=== PATIENT | female | born 1970 | race Caucasian/White ===

== ENCOUNTER 2017-09-13 02:39 | Emergency (ER) | payer OTHER ==
[~2017-09-13] VITALS: Ht 149.9 cm; Wt 84.4 kg
[~2017-09-13 02:39] MED LIST: ADDERALL 30 MG30 MG PO; ADVAIR 500-501 EACH INH; BACTRIM DS TAB1 EACH PO; CENTANY30 GM TP; KEFLEX500 MG PO; LOPRESSOR25 PO; NORCO 5-325 TA1 EACH PO; PAXIL CR37.5 MG PO; RESTORIL30 MG PO; XANAX 0.5 MG0.5 MG PO; ZOFRAN ODT4 MG PO
[2017-09-13] MEDS ORDERED: SINGULAIR 10 MG10 M1 (02:49)
[2017-09-13] MEDS ORDERED: SPIRIVA (02:50)
[2017-09-13 03:42] VITALS: BP 150/96
== END 2017-09-13 03:44 | disposition home or self-care (01) ==
LOC: M.ERS 02:39
DX: H53.10 Unspecified subjective visual disturbances (principal); F32.9 Major depressive disorder, single episode, unspecified; F41.9 Anxiety disorder, unspecified; F90.9 Attention-deficit hyperactivity disorder, unspecified type; I10 Essential (primary) hypertension; J45.909 Unspecified asthma, uncomplicated; G51.0 Bell's palsy; F17.200 Nicotine dependence, unspecified, uncomplicated; Z91.040 Latex allergy status

== ENCOUNTER 2017-11-20 18:51 | Emergency (ER) | payer OTHER ==
[~2017-11-20] VITALS: Ht 149.9 cm; Wt 81.7 kg
[~2017-11-20 18:51] MED LIST changes: +SINGULAIR 10 MG10 M1; +SPIRIVA
[2017-11-20] MEDS ORDERED: VALACYCLOVIR1000 MG PO (19:14)
[2017-11-20] MEDS ORDERED: HYDROCODONE-AP1 EAC6 PO (19:15)
[2017-11-20 19:32] VITALS: BP 148/80
== END 2017-11-20 19:33 | disposition home or self-care (01) ==
LOC: M.ERS 18:51
DX: G51.0 Bell's palsy (principal); I10 Essential (primary) hypertension; F90.9 Attention-deficit hyperactivity disorder, unspecified type; F32.9 Major depressive disorder, single episode, unspecified; J45.909 Unspecified asthma, uncomplicated; F17.210 Nicotine dependence, cigarettes, uncomplicated; Z91.040 Latex allergy status

== ENCOUNTER → 2018-01-09 | Outpatient (CLI) | payer OTHER ==
[~2018-01-09] MED LIST changes: +HYDROCODONE-AP1 EAC6 PO; +VALACYCLOVIR1000 MG PO
[2018-01-11 09:09] LABS: ANA INTERPRETATION Negative (Negative)
== END ==
LOC: M.LAB 12:17
DX: M25.50 Pain in unspecified joint (principal); I10 Essential (primary) hypertension; J45.909 Unspecified asthma, uncomplicated; Z87.891 Personal history of nicotine dependence

== ENCOUNTER → 2018-01-12 | Outpatient (CLI) | payer OTHER | LOC: M.MRI 13:18 | DX: J32.4 Chronic pansinusitis (principal); G51.0 Bell's palsy; I10 Essential (primary) hypertension; J45.909 Unspecified asthma, uncomplicated ==

== ENCOUNTER → 2019-01-29 | Outpatient (CLI) | payer OTHER | LOC: M.MRI 17:07 | DX: M51.16 Intervertebral disc disorders with radiculopathy, lumbar region (principal); M48.061 Spinal stenosis, lumbar region without neurogenic claudication ==

== ENCOUNTER → 2019-04-22 | Outpatient (CLI) | payer OTHER ==
[~2019-04-22] MED LIST changes: +NORCO 10-325 T1 EACH PO; +PIROXICAM20 MG PO; +PROAIR HFA8.5 GM INH; +SKELAXIN 800 M800 M1 PO; +SYMBICORT160 MCG/4. INH; +WELLBUTRIN SR100 MG PO
== END ==
LOC: M.PC 01:27
DX: M48.061 Spinal stenosis, lumbar region without neurogenic claudication (principal); M47.816 Spondylosis without myelopathy or radiculopathy, lumbar region; I10 Essential (primary) hypertension; G47.00 Insomnia, unspecified; J45.909 Unspecified asthma, uncomplicated; F32.9 Major depressive disorder, single episode, unspecified; F41.9 Anxiety disorder, unspecified; Z91.040 Latex allergy status

== ENCOUNTER → 2019-04-24 | Outpatient (CLI) | payer OTHER | END | disposition home or self-care (01) | LOC: M.PC 04:04 | DX: M54.5 Low back pain (principal); M47.816 Spondylosis without myelopathy or radiculopathy, lumbar region; M48.061 Spinal stenosis, lumbar region without neurogenic claudication; M51.36 Other intervertebral disc degeneration, lumbar region; I10 Essential (primary) hypertension; F32.9 Major depressive disorder, single episode, unspecified; J45.909 Unspecified asthma, uncomplicated; F41.9 Anxiety disorder, unspecified; G47.00 Insomnia, unspecified; Z98.890 Other specified postprocedural states; Z79.899 Other long term (current) drug therapy; Z91.040 Latex allergy status ==

== ENCOUNTER → 2019-05-27 | Outpatient (CLI) | payer OTHER | LOC: M.PC 01:15 | DX: M47.816 Spondylosis without myelopathy or radiculopathy, lumbar region (principal); M48.061 Spinal stenosis, lumbar region without neurogenic claudication; I10 Essential (primary) hypertension; G47.00 Insomnia, unspecified; J45.909 Unspecified asthma, uncomplicated; G51.0 Bell's palsy; F32.9 Major depressive disorder, single episode, unspecified; F41.9 Anxiety disorder, unspecified; F90.9 Attention-deficit hyperactivity disorder, unspecified type; F17.200 Nicotine dependence, unspecified, uncomplicated; Z91.040 Latex allergy status ==

== ENCOUNTER → 2019-06-17 | Outpatient (CLI) | payer OTHER | LOC: M.PC 09:37 | DX: M51.36 Other intervertebral disc degeneration, lumbar region (principal); M48.061 Spinal stenosis, lumbar region without neurogenic claudication; M47.816 Spondylosis without myelopathy or radiculopathy, lumbar region ==

== ENCOUNTER → 2019-07-26 | Outpatient (CLI) | payer OTHER | LOC: M.MRI 13:31 | DX: M51.25 Other intervertebral disc displacement, thoracolumbar region (principal); M48.05 Spinal stenosis, thoracolumbar region ==

== ENCOUNTER → 2019-07-29 | Outpatient (CLI) | payer OTHER | END | disposition home or self-care (01) | LOC: M.PC 01:07 | DX: M79.18 Myalgia, other site (principal); I10 Essential (primary) hypertension; J45.909 Unspecified asthma, uncomplicated; F32.9 Major depressive disorder, single episode, unspecified; F41.9 Anxiety disorder, unspecified; G47.00 Insomnia, unspecified; F17.210 Nicotine dependence, cigarettes, uncomplicated; Z98.890 Other specified postprocedural states; Z79.899 Other long term (current) drug therapy; Z79.891 Long term (current) use of opiate analgesic; Z91.040 Latex allergy status ==

== ENCOUNTER → 2019-08-12 | Outpatient (CLI) | payer OTHER | LOC: M.PC 03:10 | DX: M54.5 Low back pain (principal) ==

== ENCOUNTER → 2019-10-03 | Outpatient (CLI) | payer OTHER ==
[~2019-10-03] MED LIST changes: +TIZANIDINE HCL 22 M1 PO; +ZOFRAN4 MG PO
== END ==
LOC: M.LAB 10:08
PROVIDERS: ATTEND Physical Medicine & Rehabilitation
DX: Z01.818 Encounter for other preprocedural examination (principal); Z11.59 Encounter for screening for other viral diseases

== ENCOUNTER → 2019-10-09 | Outpatient (CLI) | payer OTHER | LOC: M.PC 01:46 | DX: M51.36 Other intervertebral disc degeneration, lumbar region (principal); M48.061 Spinal stenosis, lumbar region without neurogenic claudication; M79.651 Pain in right thigh; M79.652 Pain in left thigh; Z87.39 Personal history of other diseases of the musculoskeletal system and connective tissue; M47.816 Spondylosis without myelopathy or radiculopathy, lumbar region; Z79.899 Other long term (current) drug therapy ==

== ENCOUNTER → 2019-11-18 | Outpatient (CLI) | payer OTHER | LOC: M.PC 09:00 | PROVIDERS: ATTEND Physical Medicine & Rehabilitation | DX: M51.36 Other intervertebral disc degeneration, lumbar region (principal); M48.061 Spinal stenosis, lumbar region without neurogenic claudication; M96.1 Postlaminectomy syndrome, not elsewhere classified; M79.651 Pain in right thigh; M79.652 Pain in left thigh; M47.816 Spondylosis without myelopathy or radiculopathy, lumbar region; Z98.1 Arthrodesis status; M79.2 Neuralgia and neuritis, unspecified; Z79.899 Other long term (current) drug therapy ==

== ENCOUNTER → 2019-12-02 | Outpatient (CLI) | payer OTHER | LOC: M.PC 02:51 | PROVIDERS: ATTEND Physical Medicine & Rehabilitation | DX: M51.36 Other intervertebral disc degeneration, lumbar region (principal); M48.061 Spinal stenosis, lumbar region without neurogenic claudication; M79.2 Neuralgia and neuritis, unspecified; M79.651 Pain in right thigh; M79.652 Pain in left thigh; M96.1 Postlaminectomy syndrome, not elsewhere classified; Z96.82 Presence of neurostimulator ==

== ENCOUNTER → 2019-12-30 | Outpatient (CLI) | payer OTHER ==
[~2019-12-30] MED LIST changes: +LORCET 5-325 M1 EACH PO; +OXYCONTIN10 M1 PO
== END ==
LOC: M.PC 02:43
PROVIDERS: ATTEND Physical Medicine & Rehabilitation
DX: M51.36 Other intervertebral disc degeneration, lumbar region (principal); M48.061 Spinal stenosis, lumbar region without neurogenic claudication; M47.816 Spondylosis without myelopathy or radiculopathy, lumbar region; M54.5 Low back pain; I10 Essential (primary) hypertension; J45.909 Unspecified asthma, uncomplicated

== ENCOUNTER → 2020-01-30 | Outpatient (CLI) | payer OTHER | LOC: M.PC 09:05 | PROVIDERS: ATTEND Physical Medicine & Rehabilitation | DX: M47.816 Spondylosis without myelopathy or radiculopathy, lumbar region (principal); M51.36 Other intervertebral disc degeneration, lumbar region; M79.652 Pain in left thigh; M79.651 Pain in right thigh; M79.2 Neuralgia and neuritis, unspecified; G89.4 Chronic pain syndrome; M25.78 Osteophyte, vertebrae ==

== ENCOUNTER → 2020-02-05 | Outpatient (CLI) | payer OTHER | LOC: M.PC 10:30 | PROVIDERS: ATTEND Physical Medicine & Rehabilitation | DX: M47.816 Spondylosis without myelopathy or radiculopathy, lumbar region (principal); G62.9 Polyneuropathy, unspecified; M79.652 Pain in left thigh; M79.651 Pain in right thigh; M51.36 Other intervertebral disc degeneration, lumbar region; M48.061 Spinal stenosis, lumbar region without neurogenic claudication; F17.200 Nicotine dependence, unspecified, uncomplicated; Z88.8 Allergy status to other drugs, medicaments and biological substances; Z79.899 Other long term (current) drug therapy ==

== ENCOUNTER → 2020-02-26 | Outpatient (CLI) | payer OTHER | LOC: M.LAB 16:42 | PROVIDERS: ATTEND Physical Medicine & Rehabilitation | DX: Z01.812 Encounter for preprocedural laboratory examination (principal); Z20.828 Contact with and (suspected) exposure to other viral communicable diseases ==

== ENCOUNTER → 2020-03-04 | Outpatient (CLI) | payer OTHER | LOC: M.PC 10:20 | PROVIDERS: ATTEND Physical Medicine & Rehabilitation | DX: M47.816 Spondylosis without myelopathy or radiculopathy, lumbar region (principal); M51.36 Other intervertebral disc degeneration, lumbar region; M48.061 Spinal stenosis, lumbar region without neurogenic claudication; I10 Essential (primary) hypertension; J45.909 Unspecified asthma, uncomplicated; F32.9 Major depressive disorder, single episode, unspecified; F41.9 Anxiety disorder, unspecified; F17.200 Nicotine dependence, unspecified, uncomplicated; Z91.040 Latex allergy status ==

== ENCOUNTER → 2020-03-16 | Outpatient (CLI) | payer OTHER | LOC: M.PC 10:30 | PROVIDERS: ATTEND Physical Medicine & Rehabilitation | DX: M51.36 Other intervertebral disc degeneration, lumbar region (principal); M54.5 Low back pain; M47.816 Spondylosis without myelopathy or radiculopathy, lumbar region; M48.061 Spinal stenosis, lumbar region without neurogenic claudication; M79.652 Pain in left thigh; M79.651 Pain in right thigh; M79.2 Neuralgia and neuritis, unspecified; M79.18 Myalgia, other site ==

== ENCOUNTER 2020-04-18 01:16 | Inpatient (IN) | payer OTHER ==
[~2020-04-18] VITALS: Ht 149.9 cm; Wt 90.2 kg
--- NOTE | ~2020-04-18 | EMS ---
[facility] [address] [place] [address] EMS Patient Care Report Name: BRENDA HOLT Room: [address] IN [facility]#: [id number] Admission: 04/18/20 Attend Phys: Raya Vogt Discharge: Date of : 72 Report #: [id number] THIS REPORT FOR: //name// Report Transmitted: 04/21/2020 11:55 EMS Care Summary [facility] Incident [id number] @ 04/18/2020 00:16 Incident Location [address] [place] [address] Patient BRENDA ROTH Female, 50 Years 1970 Patient Address [address] [place] [address] Patient History Unspecified asthma,Hypertension (HTN), Patient Allergies No known allergies, Patient Medications Symbicort, Albuterol, Chief Complaint Shortness of Breath Disposition Transported No Lights/[place] Dispatch Reason Breathing Problem Transported To [facility] Narrative RESPONDED TO 911 CALL FOR SHORTNESS OF BREATH. ARRIVED ON SCENE. MET WITH IFD, FAMILY, AND 50 YEAR OLD FEMALE PATIENT BRENDA MULLER WHO WAS SEATED UPRIGHT BREATHING > 30/MIN WITH AUDIBLE WHEEZING. IFD REPORTED SPO2 OF 84%, BRENDA STATED SHE'D HAD NO RELIEF AFTER TAKING DUONEB PRIOR TO EMS ARRIVAL. [address]ATHERED [address] [place] [address] EMS Patient Care Report Name: BRENDA HOLT Room: [address] IN [facility]#: [id number] Admission: 04/18/20 Attend Phys: Raya Vogt Discharge: Date of : 72 Report #: [id number] LUNG SOUNDS, VITAL SIGNS. JOSEF ADMINISTERED 2.5 ALBUTEROL AND .5 ATROVENT VIA MASK NEBULIZER AT 15L O2 AFTER CONFIRMING RIGHTS AND LACK OF ALLERGY. GATHERED FURTHER OPQRST/SAMPLE, DEMOGRAPHICS WHILE MEDICATION ADMINISTERED. BRENDA HAD A HISTORY OF ASTHMA, HAD BEEN HAVING TROUBLE BREATHING FOR 1 WEEK, WORSE TONIGHT. BRENDA STATED SHE'D USED HER HOME NEBULIZER WITHOUT RELIEF, FELT SIGNIFICANTLY BETTER ON EMS MEDICATION. BRENDA REQUESTED TRANSPORT TO [facility]. ONCE MEDICATION FINISHED NEBULIZING, BRENDA AMBULATED WITH EMS TO COT, SAT COT, SECURED TO COT, WHEELED TO AMBULANCE. IN AMBULANCE GAINED IV ACCESS 20 GAUGE IN LEFT WRIST. BRENDA REPORTED WORK OF BREATHING DECREASED FROM 10/10 TO 4/10 AFTER MEDICATIONS, RR DECREASED TO 24, WHEEZING STILL AUDIBLE, SPO2 100% ON 10 L NEBULIZER MASK. ADMINISTERED 10MG DEXAMETHASONE IV AFTER CONFIRMING RIGHTS AND LACK OF ALLERGY. ADMINISTERED 2.5 MG ALBUTEROL VIA NEBULIZER MASK. JOSEF ORDERED NON EMERGENT TRANSPORT TO [facility]. GATHERED FURTHER OPQRST/SAMPLE WHILE MEDICATION ADMINISTERED. ONCE MEDICATION FINISHED, SWITCHED BRENDA TO 2 L O2 VIA NASAL CANNULA WITH CAPNOGRAPHY, WHICH REMAINED AT 41 WITH SLOPING FOR DURATION OF CALL. CALLED RADIO REPORT. ARRIVED. WHEELED BRENDA TO RN STATION, DIRECTED TO ROOM. BRENDA STOOD OFF COT, SAT HOSPITAL BED. GAVE REPORT, TRANSFERRED CARE. Initial Vitals @00:24SpO2: 84, @00:48SpO2: 99, @00:25 @00:48Temp: 97.34F, @00:24P: 114,R: 30,BP: 170/130, @00:48P: 116,R: 20,BP: 177/114, @00:71ZtHC3: 41, @01:86LrMO9: 41, @00:24GCS: 15, @00:48GCS: 15, @00:24 @00:48Glucose: 119, Assessments @00:24MENTAL:SKIN:HEENT:LUNG SOUNDS:ABDOMEN:PELVIS//GI:EXTREMITIES:PULSE:NEURO: Impression Asthma Procedures @00:25Albuterol - 2.500 Milligrams (mg) - InhalationResponse: Improved@00:25Ipratropium - 0.500 Milligrams (mg) - InhalationResponse: Improved@00:25Other - Medication - 15.000 Liters per Minute (l/min [fluid]) - InhalationResponse: Improved@00:48Dexamethasone - 10.000 Milligrams (mg) - Intravenous (IV)Response: Unchanged@00:48Albuterol - 2.500 Milligrams ([place]) [place] [address] EMS Patient Care Report Name: BRENDA HOLT Cristóbal Room: [address] IN [facility]#: [id number] Admission: 04/18/20 Attend Phys: Raya Vogt Discharge: Date of : 72 Report #: [id number] InhalationResponse: Improved@00:46 cc () Site: Other Peripheral (Not Listed)Response: UnchangedSucceeded@00:48Digital respired carbon dioxide monitoring (regime/therapy)Response: UnchangedSucceeded@01:08Digital respired carbon dioxide monitoring (regime/therapy)Response: UnchangedSucceeded@00:253-Lead ECGResponse: UnchangedSucceeded Timeline 00:15,Call Received 00:15,Dispatch Notified 00:15,Psap Call 00:16,Dispatched 00:16,En Route 00:22,On Scene 00:24,At Patient 00:24,BP: / M,PULSE: ,RR: R,SPO2: 84 Ox,ETCO2: ,BG: ,PAIN: ,GCS: , 00:24,BP: 170/130 M,PULSE: 114,RR: 30 R,SPO2: Ox,ETCO2: ,BG: ,PAIN: ,GCS: , 00:24,BP: / M,PULSE: ,RR: R,SPO2: Ox,ETCO2: ,BG: ,PAIN: ,GCS: 15, 00:24,BP: / M,PULSE: ,RR: R,SPO2: Ox,ETCO2: ,BG: ,PAIN: ,GCS: , 00:25,Albuterol - 2.500 Milligrams (mg) - Inhalation,Response: Improved 00:25,Ipratropium - 0.500 Milligrams (mg) - Inhalation,Response: Improved 00:25,Other - Medication - 15.000 Liters per Minute (l/min [fluid]) - Inhalation,Response: Improved 00:25,3-Lead ECG,Response: UnchangedSucceeded, 00:25,BP: / M,PULSE: ,RR: R,SPO2: Ox,ETCO2: ,BG: ,PAIN: ,GCS: , 00:46, cc Site: Other Peripheral (Not Listed),Response: UnchangedSucceeded, 00:48,Depart Scene 00:48,Dexamethasone - 10.000 Milligrams (mg) - Intravenous (IV),Response: Unchanged 00:48,Albuterol - 2.500 Milligrams (mg) - Inhalation,Response: Improved 00:48,Digital respired carbon dioxide monitoring (regime/therapy),Response: UnchangedSucceeded, 00:48,BP: / M,PULSE: ,RR: R,SPO2: 99 Ox,ETCO2: ,BG: ,PAIN: ,GCS: , 00:48,BP: / M,PULSE: ,RR: R,SPO2: Ox,ETCO2: ,BG: ,PAIN: ,GCS: , 00:48,BP: 177/114 M,PULSE: 116,RR: 20 R,SPO2: Ox,ETCO2: ,BG: ,PAIN: ,GCS: , 00:48,BP: / M,PULSE: ,RR: R,SPO2: Ox,ETCO2: 41 ,BG: ,PAIN: ,GCS: , 00:48,BP: / M,PULSE: ,RR: R,SPO2: Ox,ETCO2: ,BG: ,PAIN: ,GCS: 15, 00:48,BP: / M,PULSE: ,RR: R,SPO2: Ox,ETCO2: ,B,PAIN: ,GCS: , 01:08,Digital respired carbon dioxide monitoring (regime/therapy),Response: UnchangedSucceeded, 01:08,BP: / M,PULSE: ,RR: R,SPO2: Ox,ETCO2: 41 ,BG: ,PAIN: ,GCS: , 01:09,At Destination 01:30,Call Closed Disclaimer v1.1 Copyright 2020 [employer] This EMS Care Summary contains data elements from the applicable legal record [address] [address] EMS Patient Care Report Name: BRENDA HOLT Room: M.224-P ADM IN [facility].R.#: [id number] Admission: 04/18/20 Attend Phys: Raya Vogt Discharge: Date of : 72 Report #: [id number] (which may be displayed differently). It is designed to provide pertinent information for the following purposes: continuity of care, clinical quality, and state data reporting. The complete legal record is available to ED staff and administrators of the receiving hospital in [facility]'s Patient Tracker. All data is provided "as is."
[~2020-04-18 01:16] MED LIST changes: -LOPRESSOR25 PO; +LOPRESSOR50 MG PO; +OXYCODONE HCL10 MG PO
[2020-04-18 01:22] VITALS: BP 140/107
[2020-04-18 01:51] LABS: HEMATOCRIT 38.3 % (37.0-47.0); HEMOGLOBIN 12.3 gm/dL (12.0-15.0); MCH 26.2 pg (26.0-34.0); MCHC 32.2 g/dL (28.0-37.0); MCV 81.6 fL (80.0-100.0); MPV 7.6 fl. (7.2-11.1); NUCLEATED RBCS 0 /100WBC; PLATELET COUNT* 378 thou/uL (150-400); RDW-CV 15.8 % (10.5-14.5); WBC 13.3 thou/uL (4.0-11.0)
[2020-04-18 02:03] LABS: CREATININE 0.9 mg/dL (0.6-1.3)
[2020-04-18 02:04] LABS: PROTIME 10.9 Seconds (9.20-11.50)
[2020-04-18 02:09] LABS: INFLUENZA A ANTIGEN Negative (Negative); INFLUENZA B ANTIGEN Negative (Negative)
[2020-04-18 02:13] LABS: ALBUMIN 3.2 g/dL (3.4-5.0); MAGNESIUM 2.4 mg/dL (1.8-2.4); TOTAL BILIRUBIN 0.3 mg/dL (<0.1-1.0); TOTAL PROTEIN 7.4 g/dL (6.4-8.2)
[2020-04-18 02:35] LABS: ABSOLUTE BASOPHILS 0.5 thou/uL (0.0-0.2); ABSOLUTE EOSINOPHILS 1.5 thou/uL (0.0-0.7); ABSOLUTE LYMPHOCYTES 2.1 thou/uL (0.8-5.3); ABSOLUTE MONOCYTES 0.5 thou/uL (0.0-1.2); ABSOLUTE NEUTROPHILS 8.6 thou/uL (1.6-8.1); PLATELET ESTIMATE ADEQUATE
[2020-04-18 02:42] LABS: BE -1.5 mmol/L (-2 to +3); PO2 92.9 mmHg (75.0-100.0); pH 7.316 (7.340-7.450)
[2020-04-18 02:45] LABS: PCO2 50.5 mmHg (35.0-45.0)
[2020-04-18 08:30] VITALS: BP 124/80; BP 139/78
[2020-04-18 11:14] LABS: BE -3.6 mmol/L (-2 to +3); PCO2 38.1 mmHg (35.0-45.0); PO2 67.6 mmHg (75.0-100.0); pH 7.365 (7.340-7.450)
[2020-04-18 16:30] VITALS: BP 124/57
--- NOTE | 2020-04-18 18:41 | NUR ---
PT. ADMITTED TO FLOOR FROM ER. AOX4, VSS, UAL, PAIN UNDER CONTROL, BREATHING WITHOUT DIFFICULTY. CT CHEST -VE. PT. IN BED, RESTING WITH EYES CLOSED AT THIS TIME.
[2020-04-18 21:00] VITALS: BP 112/53; BP 112/57
[2020-04-19] VITALS: BP 121/56
[2020-04-19 04:00] VITALS: BP 124/49
[2020-04-19 05:02] LABS: HEMATOCRIT 34.5 % (37.0-47.0); HEMOGLOBIN 11.2 gm/dL (12.0-15.0); MCHC 32.4 g/dL (28.0-37.0); MCV 80.3 fL (80.0-100.0); MPV 7.9 fl. (7.2-11.1); RBC 4.29 mil/uL (4.20-5.00); RDW-CV 16.2 % (10.5-14.5); WBC 11.9 thou/uL (4.0-11.0)
[2020-04-19 05:31] LABS: ALBUMIN 3.1 g/dL (3.4-5.0); CALCIUM 8.6 mg/dL (8.5-10.1); CREATININE 0.7 mg/dL (0.6-1.3); MAGNESIUM 2.2 mg/dL (1.8-2.4); POTASSIUM 3.3 mmol/L (3.5-5.1); TOTAL BILIRUBIN 0.3 mg/dL (<0.1-1.0); TOTAL PROTEIN 7.2 g/dL (6.4-8.2)
--- NOTE | 2020-04-19 06:11 | NUR ---
No acute event this shift. Pt still complains of chronic back pain. Meds given per mar. Pt on 3L NC. Reminded to use call light for assistance, will continue POC.
[2020-04-19 08:00] VITALS: BP 117/50
[2020-04-19 12:28] VITALS: BP 87/51
[2020-04-19 17:03] VITALS: BP 169/73
--- NOTE | 2020-04-19 18:23 | NUR ---
PT. AOX4, VSS, BREATHING W/O DIFFICULTY, PAIN UNDER CONTROL, UP AD VIRGIL, CALL LIGHT AND PERSONAL BELONGINGS PLACED WITHIN REACH. PT. REQUESTS SIDRA SIERRA ADMINISTER HER FLU SHOT. PT. IN BED, IN STABLE CONDITION, AT THIS TIME.
[2020-04-19 21:00] VITALS: BP 125/54
[2020-04-20 00:01] VITALS: BP 114/54
[2020-04-20 04:35] LABS: HEMATOCRIT 34.2 % (37.0-47.0); HEMOGLOBIN 11.1 gm/dL (12.0-15.0); MCHC 32.5 g/dL (28.0-37.0); MCV 80.1 fL (80.0-100.0); RBC 4.27 mil/uL (4.20-5.00); RDW-CV 16.1 % (10.5-14.5); WBC 13.9 thou/uL (4.0-11.0)
[2020-04-20 04:56] LABS: CALCIUM 9.4 mg/dL (8.5-10.1); CREATININE 0.8 mg/dL (0.6-1.3); MAGNESIUM 2.4 mg/dL (1.8-2.4); POTASSIUM 4.2 mmol/L (3.5-5.1)
--- NOTE | 2020-04-20 05:30 | NUR ---
No acute event this shift. Pt on Bipap overnight. Pt complains of chronic back pain, meds given per jul. RT on board with breathing treatment. Call light within reach, will continue POC.
[2020-04-20 05:41] VITALS: BP 116/60
--- NOTE | 2020-04-20 07:44 | CON ---
[address] [address] CONSULTATION Name: BRENDA HOLT Cristóbal Room: [address] IN M.R.#: [id number] Admission: 04/18/20 Attend Phys: Raya Vogt Discharge: Date of : 72 Report #: [id number] THIS REPORT FOR: //name// cc: Santiago Hunter MD, Neal A. MD ~ DATE OF SERVICE: 04/18/2020 CONSULT HAS BEEN REQUESTED BY: Dr. Dominguez . INDICATION FOR CONSULTATION: Shortness of breath. 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 The patient does have a history of bronchial asthma and also has had a history of back pain and had recent pain pump removal. The patient is now admitted with acute shortness of breath. Shortness of breath has been worsening over the last one week. The patient has also had a cough with yellow sputum production. She does not have chest pain. She did not describe a fever or chills. There are no upper respiratory complaints. There is no significant swelling in lower extremities. She has had some sleep complaints and it is reported to have snoring at night, which is longstanding. REVIEW OF SYSTEMS: For 12 points is negative except as mentioned above. 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 SOCIAL HISTORY: There is a previous history of smoking, has now discontinued, unable to quantify exactly at this time. No known history of heavy alcohol use or illegal drug use. ALLERGIES: ALLERGIC TO LATEX. FAMILY HISTORY: There is no history of COVID-19 in her family. PHYSICAL EXAMINATION: GENERAL: She is alert, awake and oriented, is on 2 liters nasal cannula. VITAL SIGNS: Pulse 104, blood pressure 139/78, she is saturating 97%, respiratory rate is 18. She is afebrile and has been afebrile since admission. Temperature was 36.9. HEENT: Head is normocephalic and atraumatic. NECK: Does not show raised JVP, asymmetry, mass or lymph nodes. CHEST: Symmetrical expansion on inspection and palpation. On auscultation, breath sounds are bilaterally equal, but decreased[place] [address] CONSULTATION Name: BRENDA HOLT Room: [address]#: [id number] Admission: 04/18/20 Attend Phys: Raya Vogt Discharge: Date of : 72 Report #: [id number] I do not hear any added sounds. HEART: Regular. There is no murmur. ABDOMEN: Soft and nontender. EXTREMITIES: Lower extremities show no edema, no calf tenderness. SKIN: Dry and intact. NEUROLOGICAL: Moves all extremities bilaterally equally and spontaneously with no focal deficit identified. LABORATORY DATA: The patient's chest x-ray from yesterday is reviewed. I did in fact obtained a CT chest without contrast now as well, which is unremarkable. The patient's lab work [facility]. ASSESSMENT AND PLAN: 1. Acute hypercarbic respiratory failure. The patient does appear to have bronchospasm. Also, it appears that the patient in the background, also has previously undiagnosed sleep apnea. Both of these appear to be contributing to her acute hypercarbic respiratory failure. In addition, it is noted the patient has been on narcotics prescribed to her in the past, if used recently these may in fact also be contributing. At this time, we will continue to titrate oxygen if the patient's condition deteriorates, I will have a low threshold of adding BiPAP while asleep, pCO2 levels have now returned to the normal range. 2. Bronchial asthma exacerbation, underlying chronic obstructive pulmonary disease, also needs to be ruled out acutely. I agree with the current treatment with nebulized bronchodilators as well as budesonide and Singulair, in addition to Solu-Medrol. The patient would benefit from further evaluation as an outpatient and I will be happy to evaluate her after discharge and obtain pulmonary function tests and assess long-term therapy for her asthma and rule out underlying chronic obstructive pulmonary disease. 3. Hypersomnia/sleep disturbances/snoring. It also appears to me that the patient has a previously undiagnosed underlying sleep apnea as above. We will place her on BiPAP while asleep. We will have a low threshold of this, if she was to decline. Otherwise, we will plan on obtaining an outpatient sleep study after her discharge. 4. Acute bacterial bronchitis. She has had significant yellow sputum production. Therefore, I agree with antibiotics as currently ordered. There are no significant infiltrates on the patient's CT chest. The patient's rapid COVID-19 antigen was negative. There are no findings of the CT consistent with COVID-19. The patient has no history of exposure. 5. Gastrointestinal prophylaxis/possible underlying gastroesophageal reflux disease. Agree with Protonix. 6. Deep venous thrombosis prophylaxis, Lovenox, D-dimer is not elevated. [address] [place] [address] CONSULTATION Name: BRENDA HOLT Room: [address]#: [id number] Admission: 04/18/20 Attend Phys: Raya Vogt Discharge: Date of : 72 Report #: [id number] Thanks for this consultation. <ELECTRONICALLY SIGNED> By: Chu Chavira MD 04/20/20 0744 1540 [id number] Chavira MD /nt
[2020-04-20 08:34] VITALS: BP 126/68
--- NOTE | 2020-04-20 10:16 | NUR ---
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 PT CURRENTLY ON 2L O2 VIA NC, BUT DOES NOT USE HOME O2. CM WILL REMAIN AVAILABLE TO ASSIST WITH D/C PLANNING NEEDED.
--- NOTE | 2020-04-20 11:44 | EKG ---
[place] [address] ELECTROCARDIOGRAM REPORT Name: BRENDA HOLT Room: [address] ADM IN 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1970 Requested By: Jessica Echols Order Number: [id number] MD: Lonnie Logan Measurements Intervals [place] Rate: 80 P: 82 RI: 158 QRS: 73 QRSD: 99 T: 51 QT: 379 QTc: 438 Interpretive Statements Sinus rhythm RSR' in V1 or V2, right VCD or RVH Baseline wander in lead(s) V6 No previous ECG available for comparison Electronically Signed On 04-20-2020 11:44:16 [employer]PITAL[employer] TITLES by Lonnie Logan [email or web address] <ELECTRONICALLY SIGNED> By: Lonnie Logan MD, [facility] 04/20/20 1144 0334 0334 Lonnie Logan MD, [facility] /EPI
[2020-04-20 12:28] VITALS: BP 119/54
[2020-04-20 15:57] VITALS: BP 129/79
--- NOTE | 2020-04-20 19:24 | NUR ---
PT IS ALERT AND ORIENTED X4 UP AD VIRGIL 2L NC SOME SOA WITH EXERTION NEW IV PLACED TO LFA C/O CHRONIC BACK PAIN AND GETS THE OXY PRN SCHEDULED EVERY 4 HOURS FOR THE MOST PART LS WITH SCANT WHEEZING SR ON THE MONITOR CALL LIGHT IN REACH NO CONCERNS AT THIS TIME
[2020-04-20 20:00] VITALS: BP 146/67
--- NOTE | 2020-04-20 20:00 | NUR ---
RECIEVED REPORT AND ASSUMED CARE OF PT, ASSESSMENT COMPLETED. SOA WITH ACTIVITY OR TALKING. O2 ON AT 2L/NC. BIPAP WILL BE PLACED ON THIS EVENING. TELEMETRY ON SHOWING SR. WILL CONT TO MONITOR AND ASSIST NEEDED.
[2020-04-21 00:22] VITALS: BP 140/62
[2020-04-21 04:16] VITALS: BP 124/53
--- NOTE | 2020-04-21 05:20 | NUR ---
SLEPT WELL TONIGHT WITH BIPAP ON. NO CHANGE IN ASSESMENT. TELEMTRY SHOWING SR WITH SB WHILE ASLEEP. HS GOALS OF REST AND SAFETY ACHIEVED. HOURLY ROUNDING OBSERVED.
--- NOTE | 2020-04-21 08:00 | NUR ---
ASSUMED PT CARE THIS AM PT IS ALERT AND ORIENTED X4 UP AD VIRGIL ON 2L NC WILL WEAN OFF TODAY C/O PAIN TO BACK RECEIVES OXY EVERY 4 HOURS WITH MINIMAL RELIEF AND ZANAFLEX TID PRN WITH SOME RELIEF WELL IV ABT CONTINUE TO LFA IV SR ON THE MONITOR NO QUESTIONS OR CONCERNS AT THIS TIME CALL LIGHT IS IN REACH
[2020-04-21 08:09] VITALS: BP 157/71
[2020-04-21 12:40] VITALS: BP 120/60
--- NOTE | 2020-04-21 13:01 | NUR ---
CM INFORMED DURING PRIME ROUNDING OF THE PLAN OF CARE FOR THE PT INCLUDING PLAN TO POSSIBLY D/C PT HOME TOMORROW. CM TO ASSIST PT WITH OBTAINING HOME NEBULIZER. PT CURRENTLY ON ROOM AIR. CM WILL REMAIN AVAILABLE TO ASSIST AND FOLLOW NEEDED.
[2020-04-21 17:28] VITALS: BP 98/66
[2020-04-21 20:00] VITALS: BP 141/75
[2020-04-22] VITALS: BP 145/63
[2020-04-22 04:00] VITALS: BP 130/62
[2020-04-22 04:03] LABS: HEMATOCRIT 33.6 % (37.0-47.0); HEMOGLOBIN 11.2 gm/dL (12.0-15.0); MCH 26.2 pg (26.0-34.0); MCHC 33.4 g/dL (28.0-37.0); MCV 78.6 fL (80.0-100.0); MPV 7.8 fl. (7.2-11.1); RBC 4.28 mil/uL (4.20-5.00); RDW-CV 15.5 % (10.5-14.5)
[2020-04-22 04:20] LABS: ALBUMIN 2.9 g/dL (3.4-5.0); CALCIUM 8.7 mg/dL (8.5-10.1); CREATININE 0.8 mg/dL (0.6-1.3); MAGNESIUM 2.2 mg/dL (1.8-2.4); POTASSIUM 3.7 mmol/L (3.5-5.1); TOTAL BILIRUBIN 0.3 mg/dL (<0.1-1.0); TOTAL PROTEIN 6.5 g/dL (6.4-8.2)
--- NOTE | 2020-04-22 04:53 | NUR ---
ASSUMED PT IS AWAKE AND ORIENTED X4. PT IS AWAKE AND ORIENTED X4. 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 PT IS NOT IN DISTRESS, NO DESATURATIONS NOTED ON ROOM AIR. PAIN MEDICINE GIVEN FOR BACK PAIN WITH PARTIAL RELIEF. NO ACUTE CHANGES THIS SHIFT. PT IS ABLE TO REST THROUGH THE NIGHT WITH CPAP ON. CALL LIGHT WITHIN REACH. HOURLY ROUNDING DONE FOR PT SAFETY.
--- NOTE | 2020-04-22 04:56 | NUR ---
ASSUMED PT CARE AT APPROX 1930. PT IS AWAKE AND ORIENTED X4. PT IS TRACING SR ON THE SENSOR OPERATOR. PT IS NOT IN DISTRESS, NO DESATURATIONS NOTED ON ROOM AIR. PAIN MEDICINE GIVEN FOR BACK PAIN WITH PARTIAL RELIEF. NO ACUTE CHANGES THIS SHIFT. PT IS ABLE TO REST THROUGH THE NIGHT WITH CPAP ON. CALL LIGHT WITHIN REACH. HOURLY ROUNDING DONE FOR PT SAFETY.
[2020-04-22] MEDS ORDERED: PREDNISONE 10 M10 M1 PO (08:02)
[2020-04-22] MEDS ORDERED: IPRAT-ALBUT 0.5-3 ML INH (08:02)
[2020-04-22] MEDS ORDERED: NEBULIZER MISCELL (08:02)
[2020-04-22] MEDS ORDERED: LEVOFLOXACIN750 MG PO (08:02)
[2020-04-22] MEDS ORDERED: PULMICORT0.5 MG/2 M INH (08:02)
[2020-04-22] MEDS ORDERED: BROVANA15 MCG/2 M INH (08:02)
[2020-04-22 08:35] VITALS: BP 149/82
--- NOTE | 2020-04-22 09:31 | NUR ---
CM SPOKE TO THE PT TO DISCUSS D/C PLANNING AND NEED FOR NEBULIZER AT D/C. CM INFORMED PT THAT HER INSURANCE COMPANY INFORMS THAT THE CO-PAY AMOUNT TO OBTAIN A NEBULIZER WOULD BE $110. CM INFORMED PT OF ALTERNATE OPTION FOR NEBULIZER [facility] [employer]. PT CAN PURCHASE NEBULIZER MACHINE AND SUPPLIES FROM [facility] FOR $39.95. PT WILL NOT NEED SCRIPT TO PURCHASE THIS FROM [facility]. CM PROVIDED PT WITH ADDRESS AND CONTACT INFO FOR [facility]. CM WILL REMAIN AVAILABLE TO ASSIST AND FOLLOW NEEDED.
[2020-04-22 09:36] VITALS: BP 149/82
[2020-04-22 11:49] VITALS: BP 149/82
[2020-04-22 12:12] VITALS: BP 128/68
--- NOTE | 2020-04-22 14:26 | NUR ---
PT DISCHARGED HOME MIDLINE DISCHARGED AND MONITOR OFF NO QUESTIONS OR CONCERNS OUTPT SCHEDULING SET UP APPOINTMENT AND DR MATTHEWS SAW PT BEFORE SHE LEFT
== END 2020-04-22 14:28 | disposition home or self-care (01) | DRG 193 ==
LOC: M.ERS 01:16 → M.2W 04:03 → M.TBA-ER 04:03 → M.2W 08:43
PROVIDERS: Emergency Medicine; Internal Medicine; ADMIT Internal Medicine; ATTEND Internal Medicine
PROC: 5A09357 Assistance with Respiratory Ventilation, Less than 24 Consecutive Hours, Continuous Positive Airway Pressure (ICD-10-PCS; principal; 2020-04-19)
PROC: 05HY33Z Insertion of Infusion Device into Upper Vein, Percutaneous Approach (ICD-10-PCS; 2020-04-21)
DX: J18.9 Pneumonia, unspecified organism (principal); J96.01 Acute respiratory failure with hypoxia; J96.02 Acute respiratory failure with hypercapnia; J45.901 Unspecified asthma with (acute) exacerbation; F32.9 Major depressive disorder, single episode, unspecified; F41.9 Anxiety disorder, unspecified; I10 Essential (primary) hypertension; G47.00 Insomnia, unspecified; G47.10 Hypersomnia, unspecified; J20.9 Acute bronchitis, unspecified; G89.29 Other chronic pain; M54.9 Dorsalgia, unspecified; F90.9 Attention-deficit hyperactivity disorder, unspecified type; Z20.828 Contact with and (suspected) exposure to other viral communicable diseases; Z91.040 Latex allergy status; Z87.891 Personal history of nicotine dependence; Z23 Encounter for immunization; Z79.899 Other long term (current) drug therapy

== ENCOUNTER → 2020-05-12 | Outpatient (CLI) | payer OTHER ==
[~2020-05-12] MED LIST changes: +BROVANA15 MCG/2 M INH; +IPRAT-ALBUT 0.5-3 ML INH; +LEVOFLOXACIN750 MG PO; +NEBULIZER MISCELL; +PREDNISONE 10 M10 M1 PO; +PULMICORT0.5 MG/2 M INH
== END ==
LOC: M.MRI 14:22
PROVIDERS: ATTEND Anesthesiology Pain Medicine
DX: M51.26 Other intervertebral disc displacement, lumbar region (principal); M48.061 Spinal stenosis, lumbar region without neurogenic claudication

== ENCOUNTER → 2020-06-18 | Outpatient (CLI) | payer OTHER ==
[~2020-06-18] MED LIST changes: +OXYCONTIN20 M1 PO; +ROXICODONE5 M2 PO
--- NOTE | 2020-06-30 18:54 | PF ---
[place] [address] PULMONARY FUNCTION REPORT Name: BRENDA HOLT Room: [facility]#: [id number] Admission: 06/18/20 Attend Phys: Chu Chavira MD Discharge: Date of : 72 Report #: [id number] THIS REPORT FOR: cc: Santiago Hunter MD, Neal A. MD ~ Chu Chavira MD DATE OF SERVICE: 06/18/2020 The FEV1/FVC ratio is normal at 74% with an FVC normal at 86%. There is a mild decrease in FEV1 to 79% and the KFA33-24 is decreased to 43%. There is no significant change in any of these values after the administration of a bronchodilator. The patient's FEV1 is noted to be 1.89 liters, this does not increase after the administration of a bronchodilator. The total lung capacity is normal at 85% with the residual volume normal at 90%. The DLCO as adjusted for hemoglobin is decreased to 70%. IMPRESSION: 1. Mild obstruction without evidence of reversibility. 2. Essentially normal lung volumes. 3. Mild decrease in DLCO as adjusted for hemoglobin to 70%. <ELECTRONICALLY SIGNED> By: Chu Chavira MD 06/30/20 1854 1748 1954Akobe Chavira MD /nt
== END ==
LOC: M.PUL 06-09 14:00
PROVIDERS: ATTEND Internal Medicine Critical Care Medicine
DX: J45.50 Severe persistent asthma, uncomplicated (principal); Z88.8 Allergy status to other drugs, medicaments and biological substances

== ENCOUNTER → 2020-06-22 | Outpatient (CLI) | payer OTHER | LOC: M.PC 06-17 10:20 | PROVIDERS: ATTEND Physical Medicine & Rehabilitation | DX: M47.816 Spondylosis without myelopathy or radiculopathy, lumbar region (principal); G62.9 Polyneuropathy, unspecified; M48.061 Spinal stenosis, lumbar region without neurogenic claudication; G89.29 Other chronic pain; F17.200 Nicotine dependence, unspecified, uncomplicated; Z87.39 Personal history of other diseases of the musculoskeletal system and connective tissue ==

== ENCOUNTER → 2020-07-20 | Outpatient (CLI) | payer OTHER | LOC: M.PC 10:11 | PROVIDERS: ATTEND Physical Medicine & Rehabilitation | DX: M47.816 Spondylosis without myelopathy or radiculopathy, lumbar region (principal); M51.36 Other intervertebral disc degeneration, lumbar region; M48.061 Spinal stenosis, lumbar region without neurogenic claudication; Z98.1 Arthrodesis status; Z79.891 Long term (current) use of opiate analgesic ==

== ENCOUNTER → 2020-08-06 | Outpatient (CLI) | payer OTHER ==
--- NOTE | 2020-08-23 23:37 | SLEEP ---
[address] [address] SLEEP STUDY REPORT Name: BRENDA HOLT Room: [facility]#: [id number] Admission: 08/06/20 Attend Phys: Chu Chavira MD Discharge: Date of : 72 Report #: [id number] THIS REPORT FOR: cc: Santiago Hunter MD, Neal A. MD Pervez, Adeel MD ~ This study has been reviewed in its entirety by a board certified sleep specialist DATE OF SERVICE: 08/06/2020 SLEEP STUDY INDICATION FOR SLEEP STUDY: Excessive daytime sleepiness. INTERPRETATION: Total duration of the study is 479 minutes, out of which she was asleep for 405 minutes with an overall sleep efficiency of 85%. Sleep onset occurred 15 minutes after lying down in bed and REM onset was 112 minutes after sleep onset. N1 sleep duration was 4%, N2 duration was 72%, N3 duration was 9%, and REM duration was 15%. This is a split-night sleep study. During the initial part of the sleep study, the patient was not on positive airway pressure therapy for 147 minutes, out of which she was asleep for 117 minutes, this included 10 minutes of REM sleep. At this time, the patient did have multiple sleep-related respiratory events recorded. All of these were hypopneas. A total of 10 hypopneas were recorded. Overall, apnea-hypopnea index was 5.1. Body position data indicates that the patient was observed asleep in the supine position for 55 minutes. The rest of the time, she was on the left side. There is no significant positional variation identified. Mean heart rate at this point was 60. Periodic limb movement index was elevated to 32. However, most limb movements were not associated with arousals. Periodic limb movement index with arousals was 4.6. There was mild sleep fragmentation observed and arousal index was mildly elevated to 21. There were also multiple desaturations recorded. Overall, the patient did spend 23.6 minutes below O2 saturation of 90%; however, time below 88% was only 1.8 minutes. The patient was subsequently placed on a CPAP and was observed on CPAP therapy for 332 minutes, this included 288 minutes of sleep time, which in turn included 50 minutes of REM sleep. The patient's mean heart rate was now 60. Periodic limb movement index improved to 20. Periodic limb movement index with arousals was now was 7.5. Overall, arousal index was 31. [place] [address] SLEEP STUDY REPORT Name: BRENDA HOLT Room: [facility]#: [id number] Admission: 08/06/20 Attend Phys: Chu Chavira MD Discharge: Date of : 72 Report #: [id number] Review of the CPAP titration indicates that the patient was titrated beginning with a CPAP pressure of 5 cm of water, gradually increasing it to 11 cm of water. There was marked improvement in the patient's sleep-disordered respirations noted with the administration of a CPAP of 10-11 cm of water. Occasional hypopneas as well as central apneas, however, continued to occur and complete control of the patient's sleep disordered respirations was not achieved. O2 saturation was adequately maintained on the final CPAP pressures. IMPRESSION: 1. At baseline, the patient has mild obstructive sleep apnea with an apnea-hypopnea index of 5.1 considering that she primarily had hypopneas and also there are significant desaturations, which are out of proportion to the apnea-hypopnea index. The patient also appears to have a component of sleep-related hypoventilation. 2. With the administration of a CPAP of 10-11 cm of water, there is improvement noted in the patient's sleep-disordered respirations. O2 saturation is also adequately maintained. Complete control of the patient's sleep-disordered respirations, however, is not achieved. RECOMMENDATIONS: Recommend a CPAP of 10 cm of water with heated humidity and mask per the patient preference while asleep. During the sleep study, a ResMed AirFit N20 nasal mask, size small, with a C-Flex of 3 was used. As above, the patient does have sleep-related hypoventilation. This has only partially responded to CPAP therapy. Therefore, if the patient remains symptomatic despite use of CPAP, then I will plan to in that case bring the patient back to the Sleep Lab again later and switch her over to a BiPAP. Recommend weight loss. Recommend avoiding driving or other activities requiring vigilance if drowsy. This entire sleep study was reviewed by board-certified sleep physician. <ELECTRONICALLY SIGNED> By: Chu Chavira MD 08/23/20 2337 [id number] Chavira MD /nt
== END ==
LOC: M.SLEEPLAB 05-12 20:00
PROVIDERS: ATTEND Internal Medicine Critical Care Medicine
DX: G47.33 Obstructive sleep apnea (adult) (pediatric) (principal); G47.19 Other hypersomnia; J96.91 Respiratory failure, unspecified with hypoxia

== ENCOUNTER → 2020-08-27 | Outpatient (CLI) | payer OTHER | LOC: M.LAB 14:14 | PROVIDERS: ATTEND Internal Medicine Critical Care Medicine | DX: J45.50 Severe persistent asthma, uncomplicated (principal); J44.9 Chronic obstructive pulmonary disease, unspecified ==

== ENCOUNTER → 2020-09-07 | Outpatient (CLI) | payer OTHER ==
[2020-09-07 14:45] LABS: CREATININE 0.8 mg/dL (0.6-1.3)
--- NOTE | 2020-09-07 16:29 | 2DMMODE ---
[place] [address] 2 D/M-MODE ECHOCARDIOGRAM Name: BRENDA HOLT Cristóbal Room: [facility]#: [id number] Admission: 09/07/20 Attend Phys: Chu Chavira MD Discharge: Date of : 72 Date of Service: 09/07/20 1629 Report #: [id number] THIS REPORT FOR: cc: Santiago Hunter MD, Neal A. MD Liston, Michael J. MD [facility] ~ APPROVED REPORT Study performed: 09/07/2020 14:15:42 EXAM: Comprehensive 2D, Doppler, and color-flow Echocardiogram Patient Location: Out-Patient BSA: 1.83 HR: 59 bpm BP: 140/90 mmHg Other Information Study Quality: Good Indications Dyspnea 2D Dimensions IVSd: 8.96 (7-11mm) LVOT Diam: 20.17 (18-24mm) LVDd: 38.31 mm PWd: 10.21 (7-11mm) Ascending Ao: 26.63 (22-36mm) LVDs: 19.47 (25-40mm) Aortic Root: 25.21 mm Volumes Left Atrial Volume (Systole) LA ESV Index: 13.50 mL/m2 Aortic Valve AoV Peak Ronald.: 1.92 m/s AO Peak Gr.: 14.73 mmHg LVOT Max P.20 mmHg AO Mean Gr.: 7.39 mmHg LVOT Mean P.38 mmHg LVOT Max V: 1.14 m/s AO V2 VTI: 39.51 cm LVOT Mean V: 0.70 m/s MISHA (VTI): 2.21 cm2 LVOT V1 VTI: 27.33 cm Mitral Valve E/A Ratio: 1.07 [place] [address] 2 D/M-MODE ECHOCARDIOGRAM Name: BRENDA HOLT Room: [facility]#: [id number] Admission: 09/07/20 Attend Phys: Chu Chavira MD Discharge: Date of : 72 Date of Service: 09/07/20 1629 Report #: [id number] MV Decel. Time: 213.41 ms MV E Max Ronald.: 1.04 m/s MV PHT: 61.89 ms MVA (PHT): 3.55 cm2 TDI E/Lateral E': 10.40 E/Medial E': 9.45 Medial E' Ronald.: 0.11 m/s Lateral E' Ronald.: 0.10 m/s Pulmonary Valve PV Peak Ronald.: 0.94 m/s PV Peak Gr.: 3.54 mmHg Tricuspid Valve RAP Estimate: 5.00 mmHg TR Peak Gr.: 22.95 mmHg RVSP: 27.95 mmHg PA Pressure: 27.95 mmHg Left Ventricle The left ventricle is normal size. There is normal LV segmental wall motion. There is normal left ventricular wall thickness. Left ventricular systolic function is normal. LVEF is 55-60%. The left ventricular diastolic function is normal. Right Ventricle The right ventricle is normal size. The right ventricular systolic function is normal. Atria The left atrium size is normal. The right atrium size is normal. Aortic Valve The aortic valve is normal in structure. No aortic regurgitation is present. There is no aortic valvular stenosis. Mitral Valve The mitral valve is normal in structure. There is no mitral valve regurgitation noted. No evidence of mitral valve stenosis. Tricuspid Valve The tricuspid valve is normal in structure. Mild tricuspid regurgitation. No pulmonary hypertension. Pulmonic Valve The pulmonary valve is normal in structure. [place] [address] 2 D/M-MODE ECHOCARDIOGRAM Name: BRENDA HOLT Room: [facility]#: [id number] Admission: 09/07/20 Attend Phys: Chu Chavira MD Discharge: Date of : 72 Date of Service: 09/07/20 1629 Report #: [id number] valvular regurgitation. Great Vessels The aortic root is normal in size. IVC is normal in size and collapses >50% with inspiration. Pericardium There is no pericardial effusion. <Conclusion> The left ventricle is normal size. There is normal left ventricular wall thickness. Left ventricular systolic function is normal. LVEF is 55-60%. The left ventricular diastolic function is normal. There is normal LV segmental wall motion. Mild tricuspid regurgitation. No pulmonary hypertension. IVC is normal in size and collapses >50% with inspiration. <ELECTRONICALLY SIGNED> By: Abdon Mulligan MD, FACC 09/07/20 1629 1629 1629 Abdon Mulligan MD, FACC /INF
== END ==
LOC: M.LAB 13:45 → M.CRD 14:00 → M.LAB 14:18
PROVIDERS: ATTEND Internal Medicine Critical Care Medicine
DX: I07.1 Rheumatic tricuspid insufficiency (principal); R06.02 Shortness of breath

== ENCOUNTER → 2020-11-11 | Outpatient (CLI) | payer OTHER | END | disposition home or self-care (01) | LOC: M.CT 15:52 | PROVIDERS: ATTEND Otolaryngology | DX: J32.0 Chronic maxillary sinusitis (principal); J33.8 Other polyp of sinus ==